=== PATIENT | male | born 1955 | race Caucasian/White ===

== ENCOUNTER 2022-11-03 09:00 | Outpatient (RCR) | payer MEDICARE, OTHER, SELFPAY | END 2023-01-16 16:17 | disposition home or self-care (01) | PROVIDERS: Visit Provider Orthopaedic Surgery | DX: G56.02 Carpal tunnel syndrome, left upper limb (principal); M65.4 Radial styloid tenosynovitis [de Quervain]; M67.873 Other specified disorders of tendon, right ankle and foot; Z51.89 Encounter for other specified aftercare | CPT/HCPCS: 97035; 97110; 97140; 97161; 97165; 97535; L3806; X5282 ==

== ENCOUNTER 2023-08-19 09:45 | Outpatient (RCR) | payer MEDICARE, OTHER, SELFPAY | END 2023-10-02 14:30 | disposition home or self-care (01) | PROVIDERS: Visit Provider Student in an Organized Health Care Education/Training Program | DX: H83.02 Labyrinthitis, left ear (principal); Z51.89 Encounter for other specified aftercare | CPT/HCPCS: 95992; 97112; 97163 ==